=== PATIENT | female | born 1970 | race African-American/Black ===

== ENCOUNTER 2016-08-07 02:27 | Emergency (ER) | payer SELFPAY ==
[~2016-08-07] VITALS: Ht 162.6 cm; Wt 96.0 kg
[~2016-08-07 02:27] MED LIST: CLOTR1%T RIGHT EAR; IBUP800T23 PO; METO50TA PO
[2016-08-07 02:30] VITALS: BP 126/89; PULSE 96; RESP 16; TEMP 98.4; O2SAT 97
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
[2016-08-07] MEDS ORDERED: ACETAMINOPHEN 325 MG TAB PO ONE (05:00)
== END 2016-08-07 05:26 | disposition home or self-care (01) ==
LOC: NEPC 02:27
DX: S00.03XA Contusion of scalp, initial encounter (principal); S09.90XA Unspecified injury of head, initial encounter; I10 Essential (primary) hypertension; W22.8XXA Striking against or struck by other objects, initial encounter
CPT/HCPCS: 70450; 72125

== ENCOUNTER 2017-12-17 10:48 | Observation (INO) ==
--- NOTE | 2017-12-17 15:18 | ED ---
HPI General Chief complaint: Extremity Problem,Nontraumatic Stated complaint: Left Arm/Side Numbness Complaint Time Seen by Provider: 12/17/17 14:54 Source: patient Mode of arrival: ambulatory Limitations: no limitations History of Present Illness HPI narrative: 47yo F with PMH of HTN noncompliant with her medication presents to the ED with 2 complaints. Pt was initially here because she has been having shooting pain in left neck radiating down her left arm for 1 month. Said she has intermittent numbness and tingling. Denies any weakness, fever, fall, IVDA. While waiting in the waiting room, she started having left sided chest pain 2 hours ago. Pain is sharp, nonradiating. She said her last stress test was years ago. Denies any sob, nausea, vomiting, diaphoresis, abdominal pain. Related Data Home Medications Medication Instructions Recorded Confirmed No Known Home Medications 12/17/17 12/17/17 Allergies Allergy/AdvReac Type Severity Reaction Status Date / Time penicillin G Allergy Unknown Hives Verified 12/17/17 15:16 Review of Systems ROS: all other systems reviewed are negative [facility] Medical History Medical History Hypertension (Acute) Surgical History Surgical History History of ankle surgery (Acute) History of left cataract surgery (Acute) History of right cataract surgery (Acute) Social History Social History Substance History: No History of Abuse Second Hand Smoke Exposure: No Smoking Status: Never smoker How Often Do You Have a Drink Containing Alcohol: 4 or more times a week (4 beers nightly) Recent Travel in [facility] within the Last 8 Weeks: No Recent Out of Country Travel within the Last 8 Weeks: No Exam Narrative Exam Narrative: GENERAL: 47yo F in mild distress. SKIN: Focused skin assessment warm/dry. HEAD: Atraumatic. Normocephalic. EYES: Pupils equal and round. No scleral icterus. No injection or drainage. ENT: No nasal bleeding or discharge. Mucous membranes pink and moist. NECK: No midline cervical spine ttp. +TTP diffusely left paraspinal region. CARDIOVASCULAR: Regular rate and rhythm. No murmur appreciated. RESPIRATORY: No accessory muscle use. Clear to auscultation. Breath sounds equal bilaterally. GASTROINTESTINAL: Abdomen soft, non-tender, nondistended. Hepatic and splenic margins not palpable. MUSCULOSKELETAL: Mild decreased flexion in left arm but no focal left glenohumeral joint ttp. Sensation intact in left arm compare to right. Distal pulses intact. NEUROLOGICAL: Awake and alert. No obvious cranial nerve deficits. Motor grossly within normal limits. Normal speech. PSYCHIATRIC: Appropriate mood and affect; insight and judgment normal. Course Initial Documented Vital Signs Temperature 98.1 F 12/17/17 11:33 Pulse Rate 86 12/17/17 11:33 Respiratory Rate 14 12/17/17 11:33 Blood Pressure 158/95 H 12/17/17 11:33 Pulse Oximetry 97 12/17/17 11:33 Last Documented Vital Signs Temperature 97.8 F 12/18/17 08:01 Pulse Rate 76 12/18/17 08:01 Respiratory Rate 20 12/18/17 08:01 Blood Pressure 133/94 H 12/18/17 08:01 Pulse Oximetry 98 12/18/17 08:20 Medical Decision Making MDM Narrative Medical decision making narrative: 47yo F here with left sided neck pain radiating down left arm. There is intermittent numbness and tingling, impression is more cervical radiculopathy. Will do CT cervical spine. CT cervical spine showed mild degenerative change. No acute bony findings. No bony canal or foraminal compromise is identified. Pt also complains of left sided chest pain for 2 hours while waiting. EKG reassuring. She said she has significant family history of cardiac disease and she has not had a stress test in years. Labs reviewed, no leukocytosis. H/H normal. Troponin negative. BMP unremarkable. CXR showed no acute cardiopulmonary disease. Pt given aspirin. Although chest pain is atypical, pt has cardiac risk factor such as HTN and is has not had recent stress test. Will admit to chest pain center for serial EKG and cardiac enzymes. Will give pt a dose of amlodipine as she does not remember what she is suppose to be on. She is to follow up with primary care for further evaluation of her left arm pain as well as blood pressure control. Medical Screen Exam Complete: Yes Emergency Medical Condition: Yes Differential Diagnosis Differential Diagnosis: Cervical radiculopathy vs. rotator cuff injury vs. ACS Lab Data Result diagrams: 12/17/17 15:40 12/17/17 15:40 Lab Results 12/17/17 12/17/17 12/17/17 Range/Units 15:40 15:40 18:40 WBC 6.5 (4.0-11.0) th/mm3 RBC 4.57 (4.00-5.30) mil/mm3 Hgb 13.6 (11.6-15.3) gm/dL Hct 39.5 (35.0-46.0) % MCV 86.3 (80.0-100.0) fL MCH 29.7 (27.0-34.0) pg MCHC 34.4 (32.0-36.0) % RDW 14.8 (11.6-17.2) % Plt Count 290 (150-450) th/mm3 MPV 8.1 (7.0-11.0) fL Neut % (Auto) 62.5 (16.0-70.0) % Lymph % (Auto) 26.6 (9.0-44.0) % Dane % (Auto) 8.5 H (0.0-8.0) % Eos % (Auto) 1.1 (0.0-4.0) % Baso % (Auto) 1.3 (0.0-2.0) % Neut # (Auto) 4.0 (1.8-7.7) th/mm3 Lymph # (Auto) 1.7 (1.0-4.8) th/mm3 Dane # (Auto) 0.5 (0.0-0.9) th/mm3 Eos # (Auto) 0.1 (0.0-0.4) th/mm3 Baso # (Auto) 0.1 (0.0-0.2) th/mm3 WBC Differential . Differential Comment Auto diff final Sodium 139 (136-145) meq/L Potassium 4.0 (3.5-5.1) meq/L Chloride 104 (98-107) meq/L Carbon Dioxide 26.8 (21.0-32.0) meq/L Anion Gap 8 (5-15) meq/L BUN 10 (7-18) mg/dL Creatinine 0.92 (0.50-1.00) mg/dL Estimated GFR 80 L (>89) mL/min Random Glucose 79 (74-106) mg/dL Calcium 9.5 (8.5-10.1) mg/dL Total Creatine Kinase 80 (26-192) U/L Troponin I Less than 0.02 L Less than 0.02 L (0.02-0.05) ng/mL 12/17/17 Range/Units 22:00 WBC (4.0-11.0) th/mm3 RBC (4.00-5.30) mil/mm3 Hgb (11.6-15.3) gm/dL Hct (35.0-46.0) % MCV (80.0-100.0) fL MCH (27.0-34.0) pg MCHC (32.0-36.0) % RDW (11.6-17.2) % Plt Count (150-450) th/mm3 MPV (7.0-11.0) fL Neut % (Auto) (16.0-70.0) % Lymph % (Auto) (9.0-44.0) % Dane % (Auto) (0.0-8.0) % Eos % (Auto) (0.0-4.0) % Baso % (Auto) (0.0-2.0) % Neut # (Auto) (1.8-7.7) th/mm3 Lymph # (Auto) (1.0-4.8) th/mm3 Dane # (Auto) (0.0-0.9) th/mm3 Eos # (Auto) (0.0-0.4) th/mm3 Baso # (Auto) (0.0-0.2) th/mm3 WBC Differential Differential Comment Sodium (136-145) meq/L Potassium (3.5-5.1) meq/L Chloride (98-107) meq/L Carbon Dioxide (21.0-32.0) meq/L Anion Gap (5-15) meq/L BUN (7-18) mg/dL Creatinine (0.50-1.00) mg/dL Estimated GFR (>89) mL/min Random Glucose (74-106) mg/dL Calcium (8.5-10.1) mg/dL Total Creatine Kinase 72 (26-192) U/L Troponin I Less than 0.02 L (0.02-0.05) ng/mL Imaging Data Radiologist's impression: Cervical Spine CT 12/17/17 15:11 CONCLUSION: Mild degenerative change. No acute bony findings. Chest X-Ray 12/17/17 15:11 CONCLUSION: No acute cardiopulmonary disease. Shoulder X-Ray 12/18/17 00:00 CONCLUSION: Unremarkable examination. ECG Data EKG Prior to Arrival: No Attestation: I personally reviewed and interpreted this ECG as follows: Interpretation: NSR 86bpm. CT interval 167ms. Normal axis. No ST segment elevation or depression. Discharge Plan Discharge Disposition Patient Disposition: 30 Still Patient Discharge Details Diagnosis: Chest pain Physicians Team ED Provider: Ml Melendez Primary Care Provider: Primary Care Aaliyah Graham Attending Provider: Tess Peralta Other Providers: Lawrence Aguilar Status ED Status: Left Department Discharge Information Discharge Date/Time: 12/17/17 19:02
--- NOTE | 2017-12-17 15:43 | XR ---
EXAM DATE: 12/17/2017 3:11 PM EDT AGE/SEX: 47 years / Female INDICATIONS: Left chest pain. CLINICAL DATA: This is the patient's initial encounter. Patient reports that signs and symptoms have been present for 1 month and indicates a pain score of 10/10. MEDICAL/SURGICAL HISTORY: Hypertension. None. COMPARISON: [facility] [place]ST SINGLE AP, 08/07/2014. . FINDINGS: The lungs are clear without infiltrate, nodule, or mass. There is no appreciable pleural effusion fo r technique. Heart and mediastinum are unremarkable. CONCLUSION: No acute cardiopulmonary disease. Electronically signed by: Katelyn Clement MD 12/17/2017 3:42 PM EDT
--- NOTE | 2017-12-17 16:11 | CT ---
EXAM DATE: 12/17/2017 3:20 PM EDT AGE/SEX: 47 years / Female INDICATIONS: Left shoulder pain/left arm numbness and tingling. CLINICAL DATA: This is the patient's initial encounter. Patient reports that signs and symptoms have been present for 1 month and indicates a pain score of 10/10. MEDICAL/SURGICAL HISTORY: Hypertension. None. RADIATION DOSE: 20.40 CTDI (mGy) COMPARISON: [facility] – [place], [place] CERVICAL SPINE W/O CONTRAST, 08/07/2016. . TECHNIQUE: Contiguous axial images were obtained using helical multirow detector technique. The vol umetric data was post-processed with multiplanar reconstruction in oblique axial, sagittal, and coron al planes. Using automated exposure control and adjustment of the mA and/or kV according to patient s ize, radiation dose was kept as low as reasonably achievable to obtain optimal diagnostic quality abilio ges. DICOM format image data is available electronically for review and comparison. FINDINGS: Cervical spine alignment is satisfactory. There is no evidence of cervical spine fracture. No bony ca nal or foraminal compromise is identified. There is no evidence of paraspinal mass or hematoma. There is mild degenerative change with disc space narrowing and ventral endplate osteophyte formation most notably at C5-6. CONCLUSION: Mild degenerative change. No acute bony findings. Electronically signed by: Jonathon Flores MD 12/17/2017 4:10 PM EDT
[2017-12-17 16:14] LABS: Baso # (Auto) 0.1 th/mm3 (0.0-0.2); Baso % (Auto) 1.3 % (0.0-2.0); Eos # (Auto) 0.1 th/mm3 (0.0-0.4); Eos % (Auto) 1.1 % (0.0-4.0); Hematocrit 39.5 % (35.0-46.0); Hemoglobin 13.6 gm/dL (11.6-15.3); Lymph # (Auto) 1.7 th/mm3 (1.0-4.8); Lymph % (Auto) 26.6 % (9.0-44.0); Mean Corpuscular HGB Conc 34.4 % (32.0-36.0); Mean Corpuscular Hemoglobin 29.7 pg (27.0-34.0); Mean Corpuscular Volume 86.3 fL (80.0-100.0); Mean Platelet Volume 8.1 fL (7.0-11.0); Mono # (Auto) 0.5 th/mm3 (0.0-0.9); Mono % (Auto) 8.5 % (0.0-8.0); Neut % (Auto) 62.5 % (16.0-70.0); Platelet Count 290 th/mm3 (150-450); Red Blood Count 4.57 mil/mm3 (4.00-5.30); Red Cell Distribution Width 14.8 % (11.6-17.2); White Blood Count 6.5 th/mm3 (4.0-11.0)
[2017-12-17 16:25] LABS: Blood Urea Nitrogen 10 mg/dL (7-18); Calcium 9.5 mg/dL (8.5-10.1); Carbon Dioxide 26.8 meq/L (21.0-32.0); Glomerular Filtration Rate 80 mL/min (>89); Glucose,Random 79 mg/dL (74-106)
[2017-12-17] MEDS ORDERED: Aspirin 325 MG Tablet PO ONE (16:25)
[2017-12-17 16:51] LABS: Anion Gap 8 meq/L (5-15); Chloride 104 meq/L (98-107); Sodium 139 meq/L (136-145)
[2017-12-17] MEDS ORDERED: Acetaminophen 500 MG Tablet PO ONE (17:17)
[2017-12-17] MEDS ORDERED: amLODIPine 5 MG Tablet PO ONE (17:29)
--- NOTE | 2017-12-17 19:29 | ECG ---
Date Performed: 12/17/2017 Time Performed: 15:20:42 PTAGE: 47 years EKG: Sinus rhythm POSSIBLE LEFT ATRIAL ENLARGEMENT BORDERLINE ECG No significant change from prior electrocardiogram. PREVIOUS TRACING : 01/08/2015 22.26 DOCTOR: Antonio Raygoza Interpretating Date/Time 12/17/2017 19:28:05
[2017-12-17 19:43] LABS: Creatine Kinase 80 U/L (26-192)
[2017-12-17 22:47] LABS: Creatine Kinase 72 U/L (26-192)
--- NOTE | 2017-12-18 06:47 | ECG ---
Date Performed: 12/17/2017 Time Performed: 18:44:12 PTAGE: 47 years EKG: Sinus rhythm NORMAL ECG No significant change from prior electrocardiogram. PREVIOUS TRACING : 12/17/2017 15.20 DOCTOR: Antonio Raygoza Interpretating Date/Time 12/18/2017 06:46:43
--- NOTE | 2017-12-18 08:21 | P.HPCA ---
History of Present Illness Primary Care Physician: No Primary Care Physician Chief Complaint: Left shoulder pain History of Present Illness: 47 year old with history of hypertension currently off (blood pressure medications) presents the emergency room for further evaluation of left shoulder pain. Onset 1 month. Location left shoulder. Characterized as constant dull, ache with intermittent sharp shooting pains to left anterior chest, durations sections, nonexertional. Radiation to left elbow occasionally radiates to left wrist. Movement or palpation makes pain worse, endorses pain never resolves and occurs without movement. No relieving factors. Tried taking [id number] medications without relief. Since discomfort reports trying to keep shoulder mobile with passive ROM. No recent or remote cervical or shoulder injury. Unfortunately she was discharged from local [facility], [facility], from reportedly missing appointments, therefore does not have a PCP at this time. Past cardiac testing 08/07/14 ETT-ambulated 5 minutes, no evidence of ischemia Social history Known hypertension. Was prescribed 4 antihypertensive medications but has not taken for "a while." No known diabetes, hyperlipidemia, or coronary artery disease. Lifelong non-smoker. No recreational drug use. Endorses drinking a 4 pack of beer nightly. Single. Endorses sedentary lifestyle. Works at a local restaurant full-time. Family history Noncontributory for early onset cardiovascular disease - Diagnosis (1) Pain in left shoulder (2) Hypertension (3) Obesity (BMI 30-39.9) Review of Systems All other systems reviewed negative except as [facility] - History History Provided By: Patient - Medical History Medical History: Medical History (Last Reviewed 12/18/17 @ 09:21 by ALEKSEY Vanegas) Hypertension - Surgical History Surgical History: Surgical History (Last Updated 12/18/17 @ 09:22 by ALEKSEY Vanegas) History of ankle surgery History of left cataract surgery History of right cataract surgery - Social History I have reviewed the patient's Social History: Yes - Tobacco History Second Hand Smoke Exposure: No Tobacco Use In Past 30 Days: No Smoking Status: Never smoker - Alcohol History How Often Do You Have a Drink Containing Alcohol: 4 or more times a week (4 beers nightly) - Substance Use History Substance History: No History of Abuse - Substance Use Type Alcohol Status: Active Route Used: By Mouth - Travel History Recent Travel in the [place] Within the Last 8 Weeks: No Recent Travel Out of the Country Within the Last 8 Weeks: No - Immunization History Tetanus Immunization: >5 Years Medications and Allergies Active Medications: Active Medications Sodium Chloride (Ns Flush) 2 ml IV.FLUSH BID LANDON Last Admin: 12/17/17 22:04 Dose: 2 ml Sodium Chloride (Ns Flush) 2 ml IV.FLUSH PRN PRN PRN Reason: FLUSH AFTER USING IV ACCESS Allergies Allergy/AdvReac Type Severity Reaction Status Date / Time penicillin G Allergy Unknown Hives Verified 12/17/17 15:16 Home Medications Medication Instructions Recorded Confirmed Type No Known Home Medications 12/17/17 12/17/17 History Exam Vital signs: Vital Signs 12/17/17 11:33 12/17/17 15:30 12/17/17 16:00 Temperature 98.1 F Pulse Rate 86 87 Respiratory Rate 14 18 Blood Pressure 158/95 H 179/101 H Pulse Oximetry 97 98 100 12/17/17 17:27 12/17/17 18:45 12/17/17 20:00 Temperature 98.1 F Pulse Rate 81 82 90 Respiratory Rate 18 18 19 Blood Pressure 166/95 H 156/72 H 156/95 H Pulse Oximetry 100 97 98 12/17/17 21:05 12/18/17 00:00 12/18/17 03:56 Temperature 98.2 F 97.8 F Pulse Rate 90 86 84 Respiratory Rate 18 18 Blood Pressure 161/92 H 156/85 H Pulse Oximetry 99 98 12/18/17 08:01 12/18/17 08:20 Temperature 97.8 F Pulse Rate 76 Respiratory Rate 20 Blood Pressure 133/94 H Pulse Oximetry 99 98 Intake & Output 12/17/17 12/18/17 12/18/17 18:59 06:59 18:59 Intake Total 240 / 240 Balance 240 / 240 Weight 90.718 kg 89.811 kg Intake: Oral 240 / 240 Other: # Voids 1 Date of Last Bowel Movement 12/17/17 Weight On Admission 89.811 kg Narrative: GENERAL: Alert WN, WD, NAD, pleasant, obese, -Prydeinig female HEAD: NC, AT EYES: Sclera clear, pupils equal and round ENT: Mucous membranes pink and moist, poor dentition NECK: Supple, no masses, trachea midline CV: RRR, without murmur, rub, gallop, no JVD, S1-S2 no S3-S4. RESP: Clear lungs throughout bilateral, no crackles, wheeze, rhonchi, symmetrical chest rise, nonlabored, able to speak in full sentences ABD: Soft, NT, ND, no masses, positive bowel tones EXT: Pulses +2x4, trace bilateral dependent edema MS: Normal tone x4 extremities, no obvious deformities, limited passive ROM of left shoulder with adduction and abduction, pain reproduced with passive ROM and palpation of left anterior chest, left shoulder. No warmth or redness NEURO: CN II through CN XII grossly intact, motor strength decreased left upper extremities, guards area, no weakness PSYCH: A+O x3, pleasant affect, appropriate speech, mood, insight and judgment SKIN: Normal turgor, normal texture, no lesions, no rashes Results 12/17/17 15:40 12/17/17 15:40 Cardiac Enzymes 12/17/17 12/17/17 12/17/17 Range/Units 15:40 18:40 22:00 Troponin I Less than 0.02 L Less than 0.02 L Less than 0.02 L (0.02-0.05) ng/mL CBC 12/17/17 Range/Units 15:40 WBC 6.5 (4.0-11.0) th/mm3 RBC 4.57 (4.00-5.30) mil/mm3 Hgb 13.6 (11.6-15.3) gm/dL Hct 39.5 (35.0-46.0) % Plt Count 290 (150-450) th/mm3 Neut # (Auto) 4.0 (1.8-7.7) th/mm3 Lymph # (Auto) 1.7 (1.0-4.8) th/mm3 [place] # (Auto) 0.5 (0.0-0.9) th/mm3 Eos # (Auto) 0.1 (0.0-0.4) th/mm3 Baso # (Auto) 0.1 (0.0-0.2) th/mm3 Comprehensive Metabolic Panel 12/17/17 Range/Units 15:40 Sodium 139 (136-145) meq/L Potassium 4.0 (3.5-5.1) meq/L Chloride 104 (98-107) meq/L Carbon Dioxide 26.8 (21.0-32.0) meq/L BUN 10 (7-18) mg/dL Creatinine 0.92 (0.50-1.00) mg/dL Calcium 9.5 (8.5-10.1) mg/dL Intake and Output 12/17/17 12/18/17 12/18/17 22:59 06:59 14:59 Intake Total 240 / 240 Balance 240 / 240 Intake: Oral 240 / 240 Other: # Voids 1 Date of Last Bowel Movement 12/17/17 Weight 89.811 kg Weight On Admission 89.811 kg - Imaging and Cardiology Imaging: Impressions Cervical Spine CT 12/17/17 15:11 CONCLUSION: Mild degenerative change. No acute bony findings. Chest X-Ray 12/17/17 15:11 CONCLUSION: No acute cardiopulmonary disease. EKG interpretations - EKG EKG results cardiology: sinus rhythm, normal axis, normal QRS, normal ST/T Caprini VTE Risk Assessment Caprini VTE Risk Assessment: No/Low Risk (score <= 1) Caprini Risk Assessment Model: Point Value = 1 Point Value = 2 Point Value = 3 Point Value = 5 Age 41-60 Minor surgery BMI > 25 kg/m2 Swollen legs Varicose veins or History of unexplained or recurrent spontaneous Oral contraceptives or hormone replacement Sepsis (< 1 month) Serious lung disease, including pneumonia (< 1 month) Abnormal pulmonary function Acute myocardial infarction Congestive heart failure (< 1 month) History of inflammatory bowel disease Medical patient at bed rest Age 61-74 Arthroscopic surgery Major open surgery (> 45 min) Laparoscopic surgery (> 45 min) Malignancy Confined to bed (> 72 hours) Immobilizing plaster cast Central venous access Age >= 75 History of VTE Family history of VTE Factor V Leiden Prothrombin [id number] Lupus anticoagulant Anticardiolipin antibodies Elevated serum homocysteine Heparin-induced thrombocytopenia Other congenital or acquired thrombophilia Stroke (< 1 month) Elective arthroplasty Hip, pelvis, or leg fracture Acute spinal cord injury (< 1 month) Prophylaxis Regimen: Total Risk Factor Score Risk Level Prophylaxis Regimen 0-1 Low Early ambulation 2 Moderate Order ONE of the following: *Sequential Compression Device (SCD) *Heparin 5000 units SQ BID 3-4 Higher Order ONE of the following medications: *Heparin 5000 units SQ TID *Enoxaparin/Lovenox 40 mg SQ daily (WT < 150 kg, CrCl > 30 mL/min) *Enoxaparin/Lovenox 30 mg SQ daily (WT < 150 kg, CrCl > 10-29 mL/min) *Enoxaparin/Lovenox 30 mg SQ BID (WT < 150 kg, CrCl > 30 mL/min) AND/OR *Sequential Compression Device (SCD) 5 or more Highest Order ONE of the following medications: *Heparin 5000 units SQ TID (Preferred with Epidurals) *Enoxaparin/Lovenox 40 mg SQ daily (WT < 150 kg, CrCl > 30 mL/min) *Enoxaparin/Lovenox 30 mg SQ daily (WT < 150 kg, CrCl > 10-29 mL/min) *Enoxaparin/Lovenox 30 mg SQ BID (WT < 150 kg, CrCl > 30 mL/min) AND *Sequential Compression Device (SCD) Assessment and Plan - Assessment (1) Pain in left shoulder Code(s): M25.512 - Pain in left shoulder Status: Acute Plan: Admitted chest pain center. Monitor on telemetry overnight. ACS ruled out with 3 sets of EKGs and cardiac enzymes. Seen and evaluated by Dr. Ori Langley. No further cardiac testing. Obtain orthopedic consult for further recommendation. Left shoulder x-ray. (2) Hypertension Code(s): I10 - Essential (primary) hypertension Status: Chronic Plan: Amlodipine 5 mg p.o. Continue to monitor. Strongly encouraged her to establish with a local primary care provider, possibly [facility] will allow her to re-establish. (3) Obesity (BMI 30-39.9) Code(s): E66.9 - Obesity, unspecified Status: Chronic Plan: Encouraged weight loss, increasing daily activity, and decreasing alcohol intake. H&P: Quality - VTE Deep Vein Thrombosis/Pulmonary Embolism Present on Admission: No (1) Pain in left shoulder Qualifiers: Chronicity: unspecified Qualified Code(s): M25.512 - Pain in left shoulder (2) Hypertension Qualifiers: Hypertension type: unspecified Qualified Code(s): I10 - Essential (primary) hypertension
[2017-12-18] MEDS ORDERED: amLODIPine 5 MG Tablet PO SCH (09:00)
[2017-12-18] MEDS ORDERED: Ketorolac Inj 30 MG/ML (IVP) Vial IV.PUSH ONE (09:30)
--- NOTE | 2017-12-18 11:42 | XR ---
EXAM DATE: 12/18/2017 12:00 AM EDT AGE/SEX: 47 years / Female INDICATIONS: Left shoulder pain. CLINICAL DATA: This is the patient's initial encounter. Patient reports that signs and symptoms have been present for 1 month and indicates a pain score of 7/10. MEDICAL/SURGICAL HISTORY: None. None. COMPARISON: No prior exams available for comparison. FINDINGS: Bony structures are intact and in normal alignment. Joints are intact without dislocation or signifi cant arthropathy. Osseous density is normal. Soft tissues are unremarkable. No radiopaque foreign bodies seen. CONCLUSION: Unremarkable examination. Electronically signed by: Curry Cox MD 12/18/2017 11:41 AM EDT
--- NOTE | 2017-12-19 08:08 | ECG ---
Date Performed: 12/17/2017 Time Performed: 22:33:04 PTAGE: 47 years EKG: Sinus rhythm NORMAL ECG PREVIOUS TRACING : 12/17/2017 18.44 Since previous tracing, no significant change noted DOCTOR: Ori Langley Interpretating Date/Time 12/19/2017 08:06:31
== END 2017-12-18 16:13 | disposition home or self-care (01) ==
LOC: NEDA 10:48 → NEPD 10:48 → NEPHCDU 18:54
PROVIDERS: ADMIT Internal Medicine Interventional Cardiology; ATTEND Internal Medicine Interventional Cardiology
DX: M25.512 Pain in left shoulder; Z68.35 Body mass index [BMI] 35.0-35.9, adult; I10 Essential (primary) hypertension; R07.89 Other chest pain; E66.9 Obesity, unspecified; Z91.14 Patient's other noncompliance with medication regimen; R94.31 Abnormal electrocardiogram [ECG] [EKG]